=== PATIENT | female | born 1990 | race Caucasian/White ===

== ENCOUNTER 2018-11-20 18:37 | Emergency (ER) | payer OTHER ==
--- NOTE | 2018-11-20 20:03 | ER Document Report ---
ED Medical Screen (RME) - General Chief Complaint: Flank Pain Stated Complaint: ABDOMINAL PAIN Time Seen by Provider: 11/20/18 20:00 Notes: 33-year-old female 33 weeks gestation presents to the emergency department after seeing an urgent care for left-sided flank pain that has radiated around to her groin. She said the pain came on last night. She says it is unrelated to [place] Franco contractions and not abdominal cramping. She denies any vaginal discharge/fluid/blood. She denies any blood in her urine. She does have a history of kidney stones and states it feels like when she passed a kidney stone in the past. I have greeted and performed a rapid initial assessment of this patient. A comprehensive ED assessment and evaluation of the patient, analysis of test results and completion of medical decision making process will be conducted by an additional ED providers. - Related Data Allergies/Adverse Reactions: Penicillins Allergy (Verified 11/20/18 18:40) Physical Exam - Vital signs Vitals: Temp Pulse Resp BP Pulse Ox 97.8 F 79 19 178/91 H 99 11/20/18 18:42 11/20/18 18:42 11/20/18 18:42 11/20/18 18:42 11/20/18 18:42 Course - Vital Signs Vital signs: Temp Pulse Resp BP Pulse Ox 97.8 F 79 19 178/91 H 99 11/20/18 18:42 11/20/18 18:42 11/20/18 18:42 11/20/18 18:42 11/20/18 18:42
[2018-11-20 20:32] LABS: ABSOLUTE BASOPHILS # (AUTO) 0.1 10^3/uL (0.0-0.2); ABSOLUTE EOSINOPHILS # (AUTO) 0.2 10^3/uL (0.0-0.6); ABSOLUTE MONOCYTES (AUTO) 0.6 10^3/uL (0.1-1.4); ABSOLUTE NEUT (AUTO) 8.4 10^3/uL (1.7-8.2); BASOPHILS % (AUTO) 0.7 % (0-2); EOSINOPHILS % (AUTO) 1.8 % (0-6); HEMATOCRIT 37.1 % (36.0-47.0); HEMOGLOBIN 12.7 g/dL (12.0-15.5); LYMPHOCYTES % (AUTO) 24.5 % (13-45); MEAN CORPUSCULAR HEMOGLOBIN 27.6 pg (27.0-33.4); MEAN CORPUSCULAR HGB CONC 34.2 g/dL (32.0-36.0); MEAN CORPUSCULAR VOLUME 81 fl (80-97); MONOCYTES % (AUTO) 4.7 % (3-13); PLATELET COUNT 242 10^3/uL (150-450); SEGMENTED NEUTROPHILS % (AUTO) 68.3 % (42-78); TOTAL CELLS COUNTED % (AUTO) 100 %; WHITE BLOOD COUNT 12.3 10^3/uL (4.0-10.5)
[2018-11-20 20:54] LABS: ALANINE AMINOTRANSFERASE 36 U/L (9-52); ALBUMIN 3.5 g/dL (3.5-5.0); ALKALINE PHOSPHATASE 130 U/L (38-126); ANION GAP 6 (5-19); ASPARTATE AMINO TRANSFERASE 21 U/L (14-36); BILIRUBIN,DIRECT 0.2 mg/dL (0.0-0.4); BILIRUBIN,TOTAL 0.3 mg/dL (0.2-1.3); BLOOD UREA NITROGEN 7 mg/dL (7-20); CALCIUM 9.2 mg/dL (8.4-10.2); CARBON DIOXIDE 24 mmol/L (22-30); CHLORIDE 107 mmol/L (98-107); GLUCOSE 73 mg/dL (75-110); POTASSIUM 4.3 mmol/L (3.6-5.0); SODIUM 137.2 mmol/L (137-145); TOTAL PROTEIN 6.6 g/dL (6.3-8.2)
[2018-11-20 20:59] LABS: BILIRUBIN,URINE SMALL (NEGATIVE); GLUCOSE, URINE NEGATIVE (NEGATIVE); KETONES,URINE NEGATIVE (NEGATIVE); LEUKOCYTE ESTERASE,URINE TRACE (NEGATIVE); NITRITE,URINE NEGATIVE (NEGATIVE); PROTEIN,URINE 30 mg/dL (NEGATIVE); UROBILINOGEN,URINE NEGATIVE mg/dL (<2.0)
[2018-11-20 21:06] LABS: APPEARANCE,URINE CLEAR; COLOR,URINE YELLOW; URINE SPECIFIC GRAVITY 1.029
--- NOTE | 2018-11-20 21:31 | RADIOLOGY REPORT (SQ) ---
EXAM DESCRIPTION: [facility]Lex: US RETROPERITONEUM LIMITED CLINICAL HISTORY: 28 years Female; L flank pain/ assess for kidney stone TECHNIQUE: Bilateral renal ultrasound was performed. COMPARISON: None. FINDINGS: Aorta and IVC poorly visualized. Right kidney: 11.7 x 5.7 x 5.4 cm. No hydronephrosis or shadowing calculi. Left kidney: 12.3 x 6.6 x 6 cm. No hydronephrosis. 8 mm calculus in the midportion. Bladder: Nondistended IMPRESSION: 1. Left renal calculus 2. No hydronephrosis
[2018-11-20] MEDS ORDERED: ACETAMINOPHEN 325 MG TABLET PO ONE (23:06)
[2018-11-21] MEDS ORDERED: CEFTRIAXONE INJ 1000 MG VIAL IM ONE (01:11)
[2018-11-21] MEDS ORDERED: LIDOCAINE 1% INJ-PF (10 MG/ML) 30 ML SDV INFIL ONE (01:11)
--- NOTE | 2018-11-21 04:50 | RADIOLOGY REPORT (SQ) ---
EXAM DESCRIPTION: US LIMITED COMPLETED DATE/TME: 11/21/2018 02:33 CLINICAL HISTORY: 28 years Female, abdominal pain in Comparison: None. TECHNIQUE/LIMITATION: Targeted OB sonogram for requested parameters only. FINDINGS: Single IUP EGA is 34w0d with YUNG of 01/02/2019 EFW is 2304g at 54% (Yousuf) Cardiac activity: 139-bpm. ОЛЕГ: 10.5-cm Placenta: Anterior. No demonstrated abruption or previa. Presentation: Vertex Cervical length: 3.1-cm. Closed appearance. IMPRESSION: Targeted OB sonogram for requested parameters
--- NOTE | 2018-11-21 05:15 | ER Document Report ---
ED General - General Chief Complaint: Flank Pain Stated Complaint: ABDOMINAL PAIN Time Seen by Provider: 11/20/18 20:00 Notes: Patient is a pleasant 20-year-old female presents with complaints of pain in her left kidney and around her left flank. No pain into the pelvic region. She is approximately 33 weeks . No nausea. No vomiting. She is found to be hypertensive when she arrived. She says that during her she gets a nxious and nervous and her blood pressure does go up. 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 This morning before her pain started her blood pressure was in the 120 systolic when she checked at home. She denies any headache. No difficulty breathing. No leg edema. No fevers. She has had some mild dysuria. She does have a previous history of kidney stones. She is visiting from [place]. She is followed by [place] MUSIC VIDEO DIRECTOR physicians in [facility]. - Related Data Allergies/Adverse Reactions: Penicillins Allergy (Verified 11/20/18 18:40) Past Medical History - Social History Smoking Status: Never Smoker Chew tobacco use (# tins/day): No Frequency of alcohol use: None Drug Abuse: None Family History: Reviewed & Not Pertinent Patient has suicidal ideation: No Patient has homicidal ideation: No Renal/ Medical History: Denies: Hx Peritoneal Dialysis Past Surgical History: Reports: Hx Oral Surgery - wisdom teeth Review of Systems - Review of Systems Notes: My Normal Review Basic REVIEW OF SYSTEMS: CONSTITUTIONAL : Denies fever, chills, or sweats. Denies recent illness. EENT: Denies eye, ear, throat, or mouth pain or symptoms. Denies nasal or sinus congestion. RESPIRATORY: Denies cough, cold, or chest congestion. Denies shortness of breath, difficulty breathing, or wheezing. GASTROINTESTINAL: Left flank pain. Denies nausea, vomiting, or diarrhea. GENITOURINARY: Denies difficulty urinating, painful urination, burning, frequency, or blood in urine. FEMALE GENITOURINARY: Denies vaginal bleeding, abnormal or irregular periods. LMP: Currently MUSCULOSKELETAL: Denies neck or back pain or joint pain or swelling. SKIN: Denies rash or skin lesions. NEUROLOGICAL: Denies altered mental status or loss of consciousness. Denies headache. Denies weakness or paralysis or loss of use of either side. Denies problems with gait or speech. Denies sensory or motor loss. ALL OTHER SYSTEMS REVIEWED AND NEGATIVE. Physical Exam - Vital signs Vitals: Temp Pulse Resp BP Pulse Ox 97.8 F 79 19 178/91 H 99 11/20/18 18:42 11/20/18 18:42 11/20/18 18:42 11/20/18 18:42 11/20/18 18:42 - Notes Notes: General Appearance: Well nourished, alert, cooperative, no acute distress, moderate obvious discomfort. Vitals: reviewed, See vital signs table. Head: no swelling or tenderness to the head Eyes: PERRL, EOMI, Conjuctiva clear Mouth: No decreasd moisture Lungs: No wheezing, No rales, No rhonci, No accessory muscle use, good air exch keira bilaterally. Heart: Normal rate, Regular rythm, No murmur, no rub Abdomen: Normal BS, soft, No rigidity, No abdominal tenderness outpatient, No guarding, no rebound, no abdominal masses, no organomegaly Extremities: strength 5/5 in all extremities, good pulses in all extremities, no swelling or tenderness in the extremities, no edema. Skin: warm, dry, appropriate color, no rash Neuro: speech clear, oriented x 3, normal affect, responds appropriately to questions. Course - Re-evaluation Re-evalutation: 11/21/18 07:30 Patient does have a intrarenal stone. There is no obstruction or hydronephrosis. Because she does have a small bacteriuria and she is 33 weeks I did call and speak with urologist. Spoke with the urologist as coming at [facility]. He says unlikely patient's pain is related to the kidney stone being that there is no hydro-. He said even if it is there is no intervention needed at this time as the patient has no social hydronephrosis obstruction there is no evidence of ureteral stone at this time. Recommends treating with antibiotics and consulting MUSIC VIDEO DIRECTOR. I did try and speak with the patient's MUSIC VIDEO DIRECTOR physician in [place]. I was able to call and get theOB physician's pager number. I did page her/him but never heard back. I therefore discussed the case with her MUSIC VIDEO DIRECTOR, Dr. Vazquez. Informed her that I thought it is less likely that her hypertension is related to preeclampsia being that the patient has had normal blood pressures at home and that her blood pressure is also improved here with just treatment of pain. She also has no other signs of preeclampsia and that she does not have any leg swelling, no difficulty breathing, no headache. She does have some small protein in urine but this is likely related to the blood in her urine from the stone. Dr. 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 I explained the plan to the patient. I did look up the urologist in [place] and gave him the number to the clinic. Patient only has an appointment with her export manager on Friday. They said they would keep this point. I informed her that she is a very low threshold to return to ER if she has fevers, increasing pain, vomiting, or feels like she is worsening in any way. Patient agrees with plan will be discharged home. Dictation of this chart was performed using voice recognition software; therefore, there may be some unintended grammatical errors. 11/21/18 07:33 - Vital Signs Vital signs: Temp Pulse Resp BP Pulse Ox 97.6 F 82 19 135/73 H 97 11/21/18 06:09 11/21/18 06:09 11/21/18 06:09 11/21/18 06:09 11/21/18 06:09 - Laboratory Result Diagrams: 11/20/18 20:15 11/20/18 20:15 Laboratory results interpreted by me: 11/20/18 11/20/18 11/20/18 20:15 20:15 20:15 WBC 12.3 H Absolute Neutrophils 8.4 H Creatinine 0.50 L Glucose 73 L Alkaline Phosphatase 130 H Urine Protein 30 H Urine Blood LARGE H Urine Bilirubin SMALL H Ur Leukocyte Esterase TRACE H Discharge - Discharge Clinical Impression: Renal calculus, Bacteriuria, Flank pain Qualifiers: Weeks of gestation: 33 weeks Qualified Code(s): Z3A.33 - 33 weeks gestation of Condition: Good Disposition: HOME, SELF-CARE Additional Instructions: Please follow-up with your OB doctor on Friday. You do have a stone but it is currently in your kidney. There is no evidence of obstruction of your kidney. I did discuss this with urologist at [facility]. He said there is no intervention needed at this time other than to place you on antibiotics for treatment of the small amount of bacteria that you have in your urine. We gave you an IV dose of antibiotics. I will discharge you home with an antibiotic called Keflex. Please take this as prescribed. Please see your doctor on Friday for reevaluation. Please have a very low threshold to return to the ER if you have increasing pain, vomiting, any fevers, or if you feel like you are worsening in any way. The phone number for [facility] in [place] is [phone]. Prescriptions: RX: Cephalexin Monohydrate [Keflex 500 mg Capsule] 500 mg PO BID #14 capsule Forms: Return to Work
[2018-11-21 06:10] VITALS: BP 135/73
== END 2018-11-21 06:11 | disposition home or self-care (01) ==
LOC: ER 18:37
DX: O26.893 Other specified pregnancy related conditions, third trimester (principal); N20.0 Calculus of kidney; R10.9 Unspecified abdominal pain; R82.71 Bacteriuria; Z3A.33 33 weeks gestation of pregnancy; Z88.0 Allergy status to penicillin
CPT/HCPCS: 99284; 96372; 36415; 87086; 85025; 87088; 80053; 81001; 87186; 76775; 76815; J3490; J0696